=== PATIENT | male | born 1970 | race Caucasian/White ===

== ENCOUNTER 2020-10-14 20:07 | Inpatient (IN) | payer BC, SELFPAY ==
[~2020-10-14] VITALS: Ht 172.7 cm; Wt 90.7 kg
[2020-10-14 20:11] VITALS: Ht 172.7 cm; Wt 90.7 kg
[2020-10-14 23:42] LABS: CALCIUM 9.2 mg/dL (8.5-10.1); CARBON DIOXIDE 27.3 mmol/L (21-32); CHLORIDE SERUM 99 mmol/L (98-107); CREATININE SERUM 1.1 mg/dL (0.7-1.3); GFR1 > 60 mL/min; GLUCOSE SERUM 124 mg/dL (74-106); POTASSIUM SERUM 4.5 mmol/L (3.5-5.1); SODIUM SERUM 138 mmol/L (136-145)
[2020-10-14 23:46] LABS: ALBUMIN 3.5 g/dL (3.4-5.0); ALKALINE PHOSPHATASE 127 U/L (46-116); ALT/SGPT 134 U/L (16-63); AST/SGOT 151 U/L (15-37); BILIRUBIN TOTAL 0.7 mg/dL (0.20-1.00); LACTIC DEHYDROGENASE (LDH) 465 U/L (100-190)
[2020-10-14 23:47] LABS: TOTAL PROTEIN, SERUM 8.5 g/dL (6.4-8.2)
[2020-10-14 23:55] LABS: BASOPHIL % 0.1 % (0-2); PLATELET COUNT 256 x10^3mcL (130-400); RED CELL DISTRIBUTION WIDTH 12.3 % (11.5-14.5)
[2020-10-15 02:47] LABS: T3 TOTAL 0.98 ng/mL
[2020-10-15 03:10] LABS: FREE T4 1.39 ng/dL (0.76-1.46); FREE THYROXINE INDEX 3.5 ug/dL (1.4-4.5)
[2020-10-15 03:25] LABS: MAGNESIUM 2.3 mg/dL (1.8-2.4); PHOSPHOROUS 3.5 mg/dL (2.5-4.9)
[2020-10-15 03:56] LABS: CHOLESTEROL/HDL RATIO 3.2
[2020-10-15 05:21] VITALS: BP 118/88
[2020-10-15 07:12] LABS: BASOPHIL % 0.3 % (0.2-1.5); PLATELET COUNT 236 x10^3mcL (152-348)
[2020-10-15 07:29] LABS: rbc morphology (normal/abnorm) NORMAL (NORMAL)
[2020-10-15 08:22] LABS: CALCIUM 8.6 mg/dL (8.5-10.1); CARBON DIOXIDE 26.5 mmol/L (21-32); CHLORIDE SERUM 98 mmol/L (98-107); CREATININE SERUM 1.2 mg/dL (0.7-1.3); GFR1 > 60 mL/min; GLUCOSE SERUM 149 mg/dL (74-106); SODIUM SERUM 138 mmol/L (136-145)
[2020-10-15 12:04] LABS: UA SPECIFIC GRAVITY 1.025 (1.005-1.035); microscopic required? YES; urine erythrocyte NEGATIVE (NEGATIVE)
[2020-10-15 13:41] LABS: AMPHETAMINE QUAL UR NONE DETECTED (See below)
[2020-10-16 00:49] VITALS: BP 134/89
[2020-10-16 05:19] VITALS: BP 107/75
[2020-10-16 07:49] LABS: BASOPHIL % 0.3 % (0.2-1.5); PLATELET COUNT 292 x10^3mcL (152-348); RED CELL DISTRIBUTION WIDTH 12.8 % (12.1-16.2)
[2020-10-16 08:09] LABS: ALKALINE PHOSPHATASE 94 U/L (46-116); ALT/SGPT 90 U/L (16-63); AST/SGOT 76 U/L (15-37); BILIRUBIN TOTAL 0.5 mg/dL (0.20-1.00); CALCIUM 8.7 mg/dL (8.5-10.1); CHLORIDE SERUM 102 mmol/L (98-107); CREATININE SERUM 0.9 mg/dL (0.7-1.3); GFR1 > 60 mL/min; GLUCOSE SERUM 118 mg/dL (74-106); POTASSIUM SERUM 4.8 mmol/L (3.5-5.1); SODIUM SERUM 139 mmol/L (136-145); TOTAL PROTEIN, SERUM 7.4 g/dL (6.4-8.2)
[2020-10-16 08:17] LABS: ALBUMIN 2.9 g/dL (3.4-5.0)
[2020-10-16 09:25] VITALS: BP 127/89
[2020-10-16 11:52] LABS: rbc morphology (normal/abnorm) NORMAL (NORMAL)
[2020-10-16 12:05] VITALS: BP 121/91
[2020-10-16 15:38] VITALS: BP 126/76
[2020-10-16 20:59] VITALS: BP 135/85
[2020-10-17 06:07] VITALS: BP 117/88
[2020-10-17 08:44] LABS: BILIRUBIN DIRECT 0.27 mg/dL (0.0-0.2); BILIRUBIN TOTAL 0.57 mg/dL (0.20-1.00)
[2020-10-17 08:54] VITALS: BP 127/93
[2020-10-17 08:57] LABS: ALBUMIN 3.2 g/dL (3.4-5.0); TOTAL PROTEIN, SERUM 8.5 g/dL (6.4-8.2)
[2020-10-17 09:48] LABS: BASOPHIL % 0.5 % (0.2-1.5); PLATELET COUNT 392 x10^3mcL (152-348)
[2020-10-17 10:28] LABS: ALKALINE PHOSPHATASE 103 U/L (46-116); ALT/SGPT 112 U/L (16-63); AST/SGOT 81 U/L (15-37); BILIRUBIN TOTAL 0.57 mg/dL (0.20-1.00); CALCIUM 9.6 mg/dL (8.5-10.1); CARBON DIOXIDE 25.9 mmol/L (21-32); CHLORIDE SERUM 101 mmol/L (98-107); CREATININE SERUM 0.9 mg/dL (0.7-1.3); GFR1 > 60 mL/min; GLUCOSE SERUM 117 mg/dL (74-106); SODIUM SERUM 143 mmol/L (136-145)
[2020-10-17 10:29] LABS: ALBUMIN 3.3 g/dL (3.4-5.0); TOTAL PROTEIN, SERUM 8.6 g/dL (6.4-8.2)
[2020-10-17 10:41] LABS: rbc morphology (normal/abnorm) NORMAL (NORMAL)
[2020-10-17 11:47] VITALS: BP 148/80
[2020-10-17 21:09] VITALS: BP 120/92
[2020-10-18 05:08] VITALS: BP 118/81
[2020-10-18 09:00] VITALS: BP 125/90
[2020-10-18 09:04] LABS: BILIRUBIN DIRECT 0.34 mg/dL (0.0-0.2); BILIRUBIN TOTAL 0.6 mg/dL (0.20-1.00)
[2020-10-18 09:06] LABS: ALBUMIN 3.1 g/dL (3.4-5.0)
[2020-10-18 12:17] VITALS: BP 132/90
[2020-10-18 18:01] VITALS: BP 109/77
[2020-10-18 21:10] VITALS: BP 138/95
[2020-10-19 05:40] VITALS: BP 124/82
[2020-10-19 08:27] LABS: CALCIUM 9.1 mg/dL (8.5-10.1); CARBON DIOXIDE 29.1 mmol/L (21-32); CHLORIDE SERUM 99 mmol/L (98-107); GFR1 > 60 mL/min; GLUCOSE SERUM 88 mg/dL (74-106); POTASSIUM SERUM 4.6 mmol/L (3.5-5.1); SODIUM SERUM 136 mmol/L (136-145)
[2020-10-19 08:29] LABS: BILIRUBIN DIRECT 0.21 mg/dL (0.0-0.2); BILIRUBIN TOTAL 0.7 mg/dL (0.20-1.00)
[2020-10-19 08:39] VITALS: BP 121/81
[2020-10-19 09:11] LABS: ALBUMIN 3.2 g/dL (3.4-5.0)
[2020-10-19 11:13] VITALS: BP 110/71
[2020-10-19 16:15] LABS: BASOPHIL % 0.6 % (0.2-1.5); RED CELL DISTRIBUTION WIDTH 13.1 % (12.1-16.2)
[2020-10-19 16:21] LABS: PLATELET COUNT 476 x10^3mcL (152-348); rbc morphology (normal/abnorm) NORMAL (NORMAL)
[2020-10-19 17:01] VITALS: BP 120/88
[2020-10-19 21:49] VITALS: BP 124/83
[2020-10-20 06:49] VITALS: BP 124/87
[2020-10-20 07:06] LABS: CALCIUM 8.7 mg/dL (8.5-10.1); CARBON DIOXIDE 25.9 mmol/L (21-32); CHLORIDE SERUM 101 mmol/L (98-107); CREATININE SERUM 0.9 mg/dL (0.7-1.3); GFR1 > 60 mL/min; GLUCOSE SERUM 99 mg/dL (74-106); POTASSIUM SERUM 4.3 mmol/L (3.5-5.1); SODIUM SERUM 136 mmol/L (136-145)
[2020-10-20 07:16] LABS: BASOPHIL % 0.1 % (0.2-1.5)
[2020-10-20 08:27] LABS: PLATELET COUNT 482 x10^3mcL (152-348)
[2020-10-20 09:50] VITALS: BP 113/79
[2020-10-20 12:44] LABS: rbc morphology (normal/abnorm) NORMAL (NORMAL)
[2020-10-20 12:47] VITALS: BP 120/78
[2020-10-20 17:59] VITALS: BP 112/78
[2020-10-20 20:50] VITALS: BP 119/86
[2020-10-21 05:20] VITALS: BP 123/86
[2020-10-21 08:15] LABS: BASOPHIL % 0.2 % (0.2-1.5)
[2020-10-21 08:39] VITALS: BP 118/81
[2020-10-21 10:32] LABS: C REACTIVE PROTEIN 6.5 mg/dL (<=0.9); CARBON DIOXIDE 26.1 mmol/L (21-32); CHLORIDE SERUM 99 mmol/L (98-107); CREATININE SERUM 0.9 mg/dL (0.7-1.3); GFR1 > 60 mL/min; GLUCOSE SERUM 83 mg/dL (74-106); MAGNESIUM 2.2 mg/dL (1.8-2.4); SODIUM SERUM 137 mmol/L (136-145)
[2020-10-21 10:39] LABS: POTASSIUM SERUM 4.3 mmol/L (3.5-5.1)
[2020-10-21 12:02] LABS: rbc morphology (normal/abnorm) NORMAL (NORMAL)
[2020-10-21 12:12] VITALS: BP 120/87
[2020-10-21 14:59] LABS: PLATELET COUNT 590 x10^3mcL (152-348)
[2020-10-21 16:37] VITALS: BP 137/95
[2020-10-21 23:23] VITALS: BP 124/94
[2020-10-22 06:28] VITALS: BP 116/80
[2020-10-22 07:16] LABS: RED CELL DISTRIBUTION WIDTH 12.8 % (12.1-16.2)
[2020-10-22 07:49] LABS: C REACTIVE PROTEIN 3.5 mg/dL (<=0.9); CALCIUM 9.1 mg/dL (8.5-10.1); CARBON DIOXIDE 29.8 mmol/L (21-32); CHLORIDE SERUM 100 mmol/L (98-107); CREATININE SERUM 0.9 mg/dL (0.7-1.3); GFR1 > 60 mL/min; GLUCOSE SERUM 102 mg/dL (74-106); POTASSIUM SERUM 4.8 mmol/L (3.5-5.1); SODIUM SERUM 136 mmol/L (136-145)
[2020-10-22 08:23] VITALS: BP 112/84
[2020-10-22 08:37] LABS: PLATELET COUNT 596 x10^3mcL (152-348)
[2020-10-22 12:22] LABS: MONOCYTE 7 % (0-7); SEGMENTED NEUTROPHILS 80 % (37-75)
[2020-10-22 12:23] LABS: rbc morphology (normal/abnorm) NORMAL (NORMAL)
[2020-10-22 13:17] VITALS: BP 108/78
[2020-10-22 16:32] VITALS: BP 122/95
[2020-10-22 20:49] VITALS: BP 144/86
[2020-10-23 05:28] VITALS: BP 123/93
[2020-10-23 09:05] VITALS: BP 140/101
[2020-10-23] MEDS ORDERED: VENTOLIN H0.09 MG/A1 INH (11:37)
[2020-10-23] MEDS ORDERED: DECADRON4 MG PO (11:38)
[2020-10-23] MEDS ORDERED: MUCINEX600 MG PO (11:38)
[2020-10-23 11:50] VITALS: BP 118/81
[2020-10-23 12:02] VITALS: BP 118/81
== END 2020-10-23 12:15 | disposition home or self-care (01) | DRG 177 ==
LOC: ED 20:07 → DU 10-15 00:33
PROVIDERS: Emergency Medicine; ADMIT Family Medicine; ATTEND Family Medicine
PROC: XW033E5 Introduction of Remdesivir Anti-infective into Peripheral Vein, Percutaneous Approach, New Technology Group 5 (ICD-10-PCS; 2020-10-15)
PROC: XW13325 Transfusion of Convalescent Plasma (Nonautologous) into Peripheral Vein, Percutaneous Approach, New Technology Group 5 (ICD-10-PCS; principal; 2020-10-16)
PROC: 5A09357 Assistance with Respiratory Ventilation, Less than 24 Consecutive Hours, Continuous Positive Airway Pressure (ICD-10-PCS; 2020-10-16)
DX: U07.1 COVID-19 (principal); J12.89 Other viral pneumonia; J96.01 Acute respiratory failure with hypoxia; E87.2 Acidosis; R74.01 Elevation of levels of liver transaminase levels; E66.9 Obesity, unspecified; Z68.30 Body mass index [BMI] 30.0-30.9, adult
CPT/HCPCS: 36600; 83880; 84439; 85378; 87804; G0378; J0456; J1100; J1650; J1885; J2543; J3535; J7030; J7040; J7050; J7060; Q0162; Q0163; U0003